=== PATIENT | male | born 1990 | race Two or more races ===

== ENCOUNTER 2023-05-14 12:31 | Emergency (ER) | payer MEDICAID ==
[~2023-05-14] VITALS: Ht 175.3 cm; Wt 81.6 kg
[2023-05-14 12:41] VITALS: BP 125/75; TEMP 98.7
--- NOTE | 2023-05-14 12:41 | NUR ---
BIBS C/O "BUMP ON MY RIGHT CHEEK AND PEELING ON MY PENIS X 4 DAYS." VITALS ARE WITHIN NORMAL LIMITS. AWAITING MD EDOUARD.
--- NOTE | 2023-05-14 12:42 | NUR ---
C/O BUMP ON RIGHT CHEEK AND PEELING ON MY PENIS X 4 DAYS. PT DENIES ANY URINARY SYMPTOMS.
[2023-05-14] MEDS ORDERED: CLOT12CR TP (12:45)
[2023-05-14] MEDS ORDERED: DOXY150T3 PO (12:45)
--- NOTE | 2023-05-14 12:45 | NUR ---
AT BEDSIDE FOR EVAL
--- NOTE | 2023-05-14 12:51 | NUR ---
Patient discharged to home in stable condition. Written and verbal after care instructions given. Patient verbalizes understanding of instruction.
== END 2023-05-14 12:52 | disposition home or self-care (01) ==
LOC: ER 12:38
DX: L73.9 Follicular disorder, unspecified (principal); N47.6 Balanoposthitis; Z60.2 Problems related to living alone